=== PATIENT | male | born 1955 ===

== ENCOUNTER 2017-12-07 01:18 | Observation (INO) | payer OTHER, BC ==
[~2017-12-07] VITALS: Ht 188 cm; Wt 108.9 kg
[2017-12-07] VITALS (14 sets, daily range): BP systolic 124–163; BP diastolic 78–99
[~2017-12-07 01:18] MED LIST: AMLO-552 PO; CETI-169 PO; CHON250C2 PO; COLC0.6T2 PO; DUTA0.5C4 PO; GABA-549 PO; GLUC100026 PO; MAGN400C PO; MULT1TAB54 PO; OMEG-41 PO; OMEP40CA48 PO; TRAM-420 PO; VITA-200 PO
[2017-12-07] MEDS ORDERED: FAMOTIDINE(*) 20MG/50ML PREMIX 0 ML IVPB ONE (12:29)
[2017-12-07] MEDS ORDERED: fentaNYL CITR 250 MCG/5 ML AMP ONE (12:48)
[2017-12-07] MEDS ORDERED: MIDAZOLAM 2 MG/2 ML VIAL IVP PRN (13:00)
[2017-12-07] MEDS ORDERED: ACETAMINOPHEN 500 MG TAB PO ONE (13:00)
[2017-12-07] MEDS ORDERED: NORMOSOL R SOLN(*) 1000 ML BAG 1,000 ML IV PRN (13:00)
[2017-12-07] MEDS ORDERED: FAMOTIDINE 20 MG TAB PO ONE ×2 (13:00)
[2017-12-07] MEDS ORDERED: PREGABALIN 150 MG CAPSULE PO ONE (13:00)
[2017-12-07] MEDS ORDERED: LIDOCAINE/SOD BICARB 8.4% SYR ID ONE (13:00)
[2017-12-07] MEDS ORDERED: ceFAZolin(*) 2GM/D5W 50ML 50 ML IVPB ONE (13:00)
[2017-12-07] MEDS ORDERED: PHENYLEPHRINE/NS/PF 0.4MG/10ML ONE (13:30)
--- NOTE | 2017-12-07 13:34 | RADIOLOGY IMAGING REPORT ---
FACILITY: [facility] PATIENT NAME: Reese Sellers : 1955 MR: [id number] V: [id number] EXAM DATE: ORDERING PHYSICIAN: YOSSI OVERTON TECHNOLOGIST: Location: [facility] - [place], [place] Patient: Reese Sellers : 1955 Visit/Account:[id number] Date of Sevice: 12/07/2017 Technique: LUMBAR SPINE 1 VIEW HISTORY: Laminectomy Comparison studies: MRI lumbar spine October 28, 2017 report FINDINGS: Surgical instrumentation and wires are seen posterior to the L2-L3 vertebral bodies. Multi level degenerative changes are again noted characterized by endplate osteophytosis. There is 4 mm an terolisthesis of L4 on L5. IMPRESSION: 1. Postoperative and degenerative findings as described above. Report Dictated By: Evan Almonte DO at 12/07/2017 1:29 PM Report E-Signed By: Evan Almonte DO at 12/07/2017 1:31 PM WSN:[id number]
[2017-12-07] MEDS ORDERED: SUGAMMADEX SOD 500 MG/5 ML SDV ONE (14:01)
[2017-12-07] MEDS ORDERED: PROPOFOL EMUL(*) 10MG/ML 20 ML 40 ML ONE (14:01)
[2017-12-07] MEDS ORDERED: ONDANSETRON 4 MG/2 ML VIAL ONE (14:01)
[2017-12-07] MEDS ORDERED: ROCURONIUM BROM 10 MG/ML 10 ML ONE (14:01)
[2017-12-07] MEDS ORDERED: ePHEDrine 25 MG/5 ML DISP.SYR IVP ONE (14:01)
[2017-12-07] MEDS ORDERED: DEXAMETHASONE SOD PHOS 10MG/ML ONE (14:01)
[2017-12-07] MEDS ORDERED: SUGAMMADEX SOD 200 MG/2 ML SDV ONE (14:04)
[2017-12-07] MEDS ORDERED: fentaNYL CITR 100 MCG/2 ML AMP ONE (14:30)
[2017-12-07] MEDS ORDERED: ONDANSETRON 4 MG/2 ML VIAL IVP PRN (15:00)
[2017-12-07] MEDS ORDERED: FLUSH 10 ML SYR IVP PRN (15:00)
[2017-12-07] MEDS ORDERED: MAGNESIUM HYDROXIDE* 30ML UDCP PO PRN (15:00)
[2017-12-07] MEDS ORDERED: BENZOCAINE/MENTHOL 1 EACH LOZG PO PRN (15:00)
[2017-12-07] MEDS ORDERED: oxyCODONE HCL 5 MG CAP PO PRN (15:00)
[2017-12-07] MEDS ORDERED: ACETAMINOPHEN 500 MG TAB PO PRN (15:00)
[2017-12-07] MEDS ORDERED: DIAZEPAM 5 MG TAB PO PRN (15:00)
[2017-12-07] MEDS ORDERED: BISACODYL 10 MG SUPP PR PRN (15:00)
[2017-12-07] MEDS ORDERED: diphenhydrAMINE 25 MG CAP PO PRN (15:00)
[2017-12-07] MEDS ORDERED: HYDROmorphone HCL 2 MG/ML SDV IVP PRN (15:00)
[2017-12-07] MEDS ORDERED: LR(*) 1000 ML BAG 1,000 ML IV PRN (15:00)
[2017-12-07] MEDS ORDERED: ACETAMINOPHEN(*)1000 MG/100 ML 100 ML IVPB PRN (15:00)
--- NOTE | 2017-12-07 19:59 | Hospitalist Consultation ---
History of Present Illness Requesting Physician Dr. Ortiz Reason for Consult Hypertension History of Present Illness This patient was admitted for lumbar spine surgery. It is reported that the surgery went well and was without complication. History Problems: (1) Essential hypertension (2) BPH (benign prostatic hyperplasia) Home Meds Reported Medications Tramadol Hcl (TRAMADOL HCL) 50 Mg Tablet, 50-100 MG PO PRN, TAB 12/01/17 Vitamin E Acetate (VITAMIN E) 400 Unit Capsule, 400 UNIT PO DAILY, CAPSULE 12/01/17 Magnesium Oxide (MAGNESIUM) 400 Mg Capsule, 400 MG PO DAILY, CAPSULE 12/01/17 [place]is-3/Dha/Epa/Fish Oil (FISH OIL 1,400 MG SOFTGEL) 1 Each Capsule.dr, 1 EACH PO DAILY 12/01/17 Multivitamin (MULTI-VITAMIN DAILY) 1 Each Tablet, 1 EACH PO DAILY 12/01/17 Chondroitin Sulfate A (CHONDROITIN SULFATE) 250 Mg Capsule, 1200 MG PO DAILY, CAPSULE 12/01/17 Glucosamine Sulfate 2KCL (GLUCOSAMINE) 1,000 Mg Tablet, 1500 MG PO DAILY 12/01/17 Omeprazole (OMEPRAZOLE) 40 Mg Capsule.dr, 40 MG PO BID, CAP 12/01/17 Amlodipine Bes/Olmesartan Med (GUNNER 10-40 MG TABLET) 1 Each Tablet, 1 EACH PO 12/01/17 Dutasteride (Dutasteride) 0.5 Mg Capsule, 1 CAP PO DAILY 12/01/17 Cetirizine Hcl (CETIRIZINE HCL) 10 Mg Tablet, 10 MG PO QDAY, TAB 12/01/17 Colchicine (COLCRYS) 0.6 Mg Tablet, 0.6 MG PO PRN 12/01/17 Gabapentin (GABAPENTIN) 300 Mg Capsule, 300 MG PO TID, CAPSULE 12/01/17 Allergies: Coded Allergies: No Known Drug Allergies (Unverified , 12/01/17) Hx Smoking: No (QUIT 1975) Caffeine Intake: Coffee, Tea Caffeine/Cups Per Day: 2-3 CUPS A DAY MOSTLY DECAF Hx Alcohol Use: No Hx Substance Use Disorder: No Review of Systems All Systems Reviewed/Normal: Yes Exam Vital Signs Vital Signs Date Time Temp Pulse Resp B/P (MAP) Pulse Ox O2 Delivery O2 Flow Rate FiO2 12/07/17 19:07 98.2 90 20 145/91 (109) 94 Nasal Cannula 2.0 Cardiovascular: Regular Rate and Rhythm Respiratory: Clear to Auscultation Extremities: No Edema Integumentary: No Cyanosis Assessment and Plan Problems: (1) Essential hypertension Assessment & Plan: He is on chronic treatment with amlodipine/olmesartan. Both medications have been ordered with hold parameters. (2) BPH (benign prostatic hyperplasia) Assessment & Plan: He is on chronic treatment with dutasteride. Copies to: YOSSI ORTIZ MD Venous Thromboembolism Antithrombotics Is Pt On Any Antithrombotics?: No Exam Sepsis Risk: No Definite Risk LUIGI FRAZIER DO Dec 07, 2017 19:59
[2017-12-07] MEDS: PANTOPRAZOLE SOD 40 MG TABEC PO SCH (21:10)
[2017-12-07] MEDS: GABAPENTIN 300 MG CAP PO SCH (21:10)
[2017-12-07] MEDS: APAP/HYDROCODONE 325/5 TAB PO PRN (21:10)
[2017-12-07] MEDS: DOCUSATE SODIUM 100 MG CAP PO SCH (21:10)
[2017-12-07] MEDS: ceFAZolin(*) 2GM/D5W 50ML 50 ML IVPB SCH (21:21)
[2017-12-08] MEDS: ceFAZolin(*) 2GM/D5W 50ML 50 ML IVPB SCH ×2 (04:23→13:26)
--- NOTE | 2017-12-08 08:13 | Hospitalist Progress Note ---
Subjective Progress Notes Subjective He has no complaints this morning. He had no acute events overnight. Patient Complains of: Cardiovascular: No: Chest Pain Respiratory: No: Shortness of Breath Physical Exam Vital Signs Date Time Temp Pulse Resp B/P (MAP) Pulse Ox O2 Delivery O2 Flow Rate FiO2 12/08/17 07:50 93 12/08/17 07:41 Room Air 12/08/17 04:20 97.9 70 20 12/07/17 22:00 124/78 (93) 2.0 General Appearance: Alert, Awake, No Acute Distress, Afebrile Neuro: No Gross deficits Cardiovascular: Regular Rate and Rhythm Respiratory: No Respiratory Distress, Clear to Auscultation GI: Soft and Non-Tender Psych: Alert & Oriented X3, Appropriate Mood & Affect Assessment and Plan Problems: (1) Essential hypertension Assessment & Plan: He is on chronic treatment with amlodipine/olmesartan. Both medications have been ordered with hold parameters. (2) BPH (benign prostatic hyperplasia) Assessment & Plan: He is on chronic treatment with dutasteride. Exam Sepsis Risk: No Definite Risk SHALONDA WEAVER DAIRY FARMWORKER Dec 08, 2017 08:13
[2017-12-08] MEDS: PANTOPRAZOLE SOD 40 MG TABEC PO SCH (08:54)
[2017-12-08] MEDS: DOCUSATE SODIUM 100 MG CAP PO SCH (08:55)
[2017-12-08] MEDS: GABAPENTIN 300 MG CAP PO SCH ×2 (08:56→14:40)
[2017-12-08] MEDS: APAP/HYDROCODONE 325/5 TAB PO PRN ×2 (08:59→17:51)
[2017-12-08] MEDS ORDERED: CETIRIZINE HCL 10 MG TAB PO SCH (09:00)
[2017-12-08] MEDS ORDERED: amLODIPine BESYL(*) 5 MG TAB PO SCH (09:00)
[2017-12-08] MEDS ORDERED: DUTASTERIDE 0.5 MG CAP PO SCH (09:00)
[2017-12-08] MEDS ORDERED: OLMESARTAN 20 MG TAB PO SCH (09:00)
[2017-12-08] MEDS ORDERED: COLCHICINE 0.6 MG TAB PO PRN (09:00)
[2017-12-08 09:02] VITALS: BP 167/92
[2017-12-08 14:25] VITALS: Ht 188 cm; Wt 108.9 kg
[2017-12-08 14:40] VITALS: BP 136/82
[2017-12-08 15:33] VITALS: BP 162/76
[2017-12-08] MEDS ORDERED: DIA5 PO (16:42)
[2017-12-08] MEDS ORDERED: DOCU240C84 PO (16:43)
[2017-12-08] MEDS ORDERED: LOR5/325 PO (16:44)
--- NOTE | 2017-12-14 11:58 | OPERATIVE REPORT 1 ---
EVENT DATE: December 07, 2017 SURGEON: Pavel Ortiz MD ANESTHESIOLOGIST: Gilberto Puente MD ANESTHESIA: General endotracheal. CHEMISTRY QUALITY CONTROL ANALYST: JOHN Robbins PREOPERATIVE DIAGNOSIS L3-L4 spinal stenosis with radiculopathy and neurogenic claudication. POSTOPERATIVE DIAGNOSIS L3-L4 spinal stenosis with radiculopathy and neurogenic claudication. PROCEDURE PERFORMED L3-L4 laminectomy. IV FLUIDS 1900 mL. ESTIMATED BLOOD LOSS 60 mL. IMPLANTS None. SPECIMENS None. DRAINS None. COMPLICATIONS None. DISPOSITION Post anesthesia care unit. INDICATION FOR SURGERY Mr. Sellers is a 62-year-old male who presented with a complaint of radiating pain, numbness and tingling, left greater than right down bilateral lower extremities in the posterolateral hip, posterior thigh and lateral calf. He had failed physical therapy, medications and activity modifications. His physical examination revealed 5/5 strength in all lower extremity muscle groups and light touch sensation intact in all dermatomes. His imaging studies showed a fusion of a spondylolisthesis at L4-L5, which was in situ and uninstrumented, and at the level above, he had significant facet hypertrophy, broad-based disk bulging and thickened ligamentum flavum resulting in significant spinal stenosis. Secondary to ongoing pain, Mr. Sellers was offered and elected to undergo L3-L4 laminectomy. Prior to surgery, I explained in detail to the patient the possible risks of surgery. This included bleeding, infection, damage to nerve roots, damage to surrounding structures, persistent and/or worsening pain, spinal fluid leak, meningitis, , blindness, sexual dysfunction, autonomic nervous system dysfunction, and other unforeseen medical and surgical complications. An understanding that spinal surgery is more predictive at improving extremity discomfort than axial spine pain was stressed. DESCRIPTION OF PROCEDURE On the day of surgery, the patient was met in the preoperative hold area, and all questions were answered. The operative site was identified and marked by myself. The patient was brought in good condition to the operating room, and after succumbing to anesthesia, was positioned in the prone position on a Peter table. All bony protuberances and soft tissues were well padded in the standard fashion. Care was taken to maintain appropriate perfusion pressures during anesthesia. IV antibiotics were administered according to the appropriate timing schedule. At the conclusion of the procedure, sponge and needle count were correct x two. Final time out was undertaken by members of the operating team to confirm correct patient, correct levels and correct surgery. He was then prepped and draped in standard sterile orthopedic fashion. An incision was made over the intended surgical levels. Sharp dissection was carried out down to the posterior elements, and a lateral radiograph was obtained to confirm correct levels. At this point, the L3 spinous process was removed using a Leksell rongeur, and the lamina was then thinned down the midline with a combination of the Leksell rongeur and a high-speed naty. The canal was entered by undermining the superior insertion of the ligamentum flavum from the inferior surface of the L3 lamina. The [place] elevator was used to separate dural adhesions from surrounding bone and soft tissue prior to use of a Kerrison punch. A #4 Kerr[place] rongeur was used to perform a midline decompression. Bilateral lateral recess decompressions were then performed with a combination of the 3-0 and 4-0 Kerrison. At the conclusion of the decompression, a [place] elevator was passed along the lateral recesses as well as out the foramina to ensure adequate decompression was achieved. Meticulous hemostasis was then obtained, and the wound was closed in layers using interrupted sutures for the deep fascia, inverted interrupted sutures for the subcutaneous tissue, and then a running subcuticular skin stitch. Sponge and needle counts were correct x two. POSTOPERATIVE CARE PLAN Mr. Sellers will remain in the hospital at least overnight, and then will be discharged home once he meets discharge criteria. He will follow up in my clinic in two weeks time for repeat examination and wound check. NORMA
== END 2017-12-08 17:31 | disposition home or self-care (01) ==
LOC: OR 01:18 → UNDOADMIN 15:50 → MED 15:50 → INTOOBSV 15:50
PROVIDERS: ADMIT Orthopaedic Surgery; ATTEND Orthopaedic Surgery
DX: M48.062 Spinal stenosis, lumbar region with neurogenic claudication (principal)
CPT/HCPCS: 63030; 72020; 97161; G0378; J1100; J2250; J2370; J2405; J2704; J3010; J0690; J3490